=== PATIENT | female | born 1995 ===

== ENCOUNTER 2017-01-06 16:12 | Emergency (ER) | payer MEDICAID ==
[2017-01-06 16:32] VITALS: BMI 36.5
[2017-01-06 16:34] VITALS: BP 118/81; PULSE 89; RESP 18; TEMP 99; O2SAT 100
--- NOTE | 2017-01-06 17:15 | C.PDOC ---
History Of Present Illness 21 year old female who presents to the ER for an evaluation of diffuse lower back pain that began 1 week ago. Patient reports the pain is constant, localized , and worse with movement. Otherwise, pt Denies known trauma or injury, fever, chills, sore throat, abdominal pain, N/V, UTI symptoms, saddle anesthesia, or incontinence, denies weakness, sensory or vascular deficits to B/L lEs. Ambulate to ED for evaluation, not n any apparent distress. Time Seen by Provider: 01/06/17 16:53 Chief Complaint (Nursing): Back Pain History Per: Patient History/Exam Limitations: no limitations Onset/Duration Of Symptoms: Days Current Symptoms Are (Timing): Still Present Quality Of Discomfort: Unable To Describe Previous Symptoms: None Associated Symptoms: None Recent travel outside of the [place]: No Past Medical History Reviewed: Historical Data, Nursing Documentation, Vital Signs Vital Signs: Last Vital Signs Temp 99.0 F 01/06/17 16:32 Pulse 89 01/06/17 16:32 Resp 18 01/06/17 16:32 BP 118/81 01/06/17 16:32 Pulse Ox 100 01/06/17 17:28 - Medical History PMH: No Chronic Diseases Surgical History: No Surg Hx - [facility] Procedures MANUAL ASSIST DELIV NEC (07/23/14) VACCINATION NEC (07/23/14) Family History: States: Unknown Family Hx - Social History Hx Tobacco Use: No Hx Alcohol Use: No Hx Substance Use: No - Immunization History Hx Tetanus Toxoid Vaccination: No Hx Influenza Vaccination: No Hx Pneumococcal Vaccination: No Review Of Systems Constitutional: Negative for: Fever, Chills Gastrointestinal: Negative for: Abdominal Pain Genitourinary: Negative for: Dysuria, Hematuria Musculoskeletal: Positive for: Back Pain Neurological: Negative for: Weakness, Numbness Physical Exam - Physical Exam Appears: Well, Non-toxic, No Acute Distress Skin: Normal Color, Warm, Dry, No Rash Nose: No Flaring, No Discharge Oral Mucosa: Moist Throat: No Erythema, No Exudate, No Drooling Neck: Supple Cardiovascular: Rhythm Regular Respiratory: No Stridor, No Wheezing Gastrointestinal/Abdominal: Soft, No Tenderness, No Distention, No Guarding, No Rebound Back: No CVA Tenderness, No Vertebral Tenderness, Paraspinal Tenderness ( Diffuse lumbar) Extremity: No Tenderness, No Pedal Edema, No Deformity Neurological/Psych: Oriented x3, Normal Speech, Normal Cognition, Normal Motor, Normal Sensation, Normal Reflexes Gait: Steady ED Course And Treatment - Laboratory Results Urine POC: Negative O2 Sat by Pulse Oximetry: 100 (Room air) Pulse Ox Interpretation: Normal Progress Note: Urinalysis ordered. On re-evaluation, pt is afebrile, hemodynamicaly stable. Non-toxic . Ambulatory in ED with stable gait. ENT: no acute findings. Neck: Supple. ABd: benign. Neurologicaly intact. UA (+)WBC. Pt has clinical findings c/w lumbar strain r/o UTI. Pt advised. ref. to Fu with PMD in 2-3 days for re-eavl. return to ED if any worsening or new changes. Disposition Counseled Patient/Family Regarding: Studies Performed, Diagnosis, Need For Followup, Rx Given - Disposition Disposition: HOME/ ROUTINE Disposition Time: 17:25 Condition: STABLE Additional Instructions: LIght duty to lower back, avoid heavy lifting, bending, etc. Take medication as prescribed Follow up with PMD in 2-3 days for re-evaluation. Return to ED if any worsening or new changes. Prescriptions: Ibuprofen [Motrin Tab] 600 mg PO Q6 #20 tab Methocarbamol [Robaxin] 500 mg PO TID #14 tab Nitrofurantoin Macrocrystals [Macrobid] 1 cap PO BID #14 cap Instructions: Urinary Tract Infection in Women (ED), Back Pain (ED) Forms: [facility] (South Korean) - Clinical Impression Clinical Impression: Low back strain, Urinary tract infection - Scribe Statement The provider has reviewed the documentation as recorded by the Scribbernarda Latham All medical record entries made by the Scribe were at my direction and personally dictated by me. I have reviewed the chart and agree that the record accurately reflects my personal performance of the history, physical exam, medical decision making, and the department course for this patient. I have also personally directed, reviewed, and agree with the discharge instructions and disposition.
[2017-01-06 17:23] LABS: RBC URINE 1 /hpf (0-3); URINE BILIRUBIN NEGATIVE (NEGATIVE); URINE BLOOD NEGATIVE (NEGATIVE); URINE COLOR Yellow (YELLOW); URINE GLUCOSE (UA) NORMAL (Normal); URINE KETONE NEGATIVE (NEGATIVE); URINE LEUKOCYTE ESTERASE NEG Leu/uL (Negative); URINE PROTEIN NEGATIVE (NEGATIVE); URINE UROBILINOGEN NORMAL mg/dL (0.2-1.0); WBC URINE 6 /hpf (0-5)
== END 2017-01-06 17:36 | disposition home or self-care (01) ==
LOC: C.ER 16:12
DX: S39.012A Strain of muscle, fascia and tendon of lower back, initial encounter (principal); X58.XXXA Exposure to other specified factors, initial encounter; N39.0 Urinary tract infection, site not specified

== ENCOUNTER 2017-02-01 10:19 | Emergency (ER) | payer MEDICAID ==
[2017-02-01 10:23] VITALS: BMI 37.8
[2017-02-01] MEDS ORDERED: Sodium Chloride 0.9% 500 ML IV ONE ×2 (10:44→11:01)
[2017-02-01 11:06] LABS: BASO % 0.2 % (0.0-2.0); EOS % 0.3 % (0.0-4.0); HEMATOCRIT 36.1 % (34.0-47.0); LYMPH # 1.5 K/uL (1.0-4.3); LYMPH % 18.1 % (20.0-40.0); MEAN CELL VOLUME 75.7 fL (81.0-99.0); MEAN CORPUSCULAR HEMOGLOBIN 25.3 pg (27.0-31.0); MEAN CORPUSCULAR HGB CONC 33.5 g/dL (33.0-37.0); MEAN PLATELET VOLUME 6.8 fL (7.2-11.7); MONO # 0.5 K/uL (0.0-0.8); MONO % 5.7 % (0.0-10.0); NRBC % 0.1 % (0.0-2.0); RED CELL DISTRIBUTION WIDTH 14.6 % (11.5-14.5); WHITE BLOOD COUNT 8.5 K/uL (4.8-10.8)
[2017-02-01 11:12] LABS: RBC URINE 3 /hpf (0-3); URINE BACTERIA FEW (<OCC); URINE BILIRUBIN NEGATIVE (NEGATIVE); URINE BLOOD NEGATIVE (NEGATIVE); URINE COLOR Yellow (YELLOW); URINE GLUCOSE (UA) NORMAL (Normal); URINE KETONE NEGATIVE (NEGATIVE); URINE LEUKOCYTE ESTERASE 3+ Leu/uL (Negative); URINE PROTEIN NEGATIVE (NEGATIVE); URINE UROBILINOGEN NORMAL mg/dL (0.2-1.0); WBC URINE 25 /hpf (0-5)
[2017-02-01 11:20] LABS: ALB/GLOB RATIO 1.1 (1.0-2.1); ALKALINE PHOSPHATASE 63 U/L (38-126); ALT/SGPT 27 U/L (9-52); AST/SGOT 22 U/L (14-36); BILIRUBIN,TOTAL 0.3 mg/dL (0.2-1.3); BLOOD UREA NITROGEN 9 mg/dL (7-17); CALCIUM 9.5 mg/dl (8.6-10.4); CARBON DIOXIDE 23 mmol/L (22-30); CHLORIDE 103 mmol/L (98-107); GFR AFRICAN-AMERICAN > 60; GLUCOSE,RANDOM 102 mg/dL (65-105); POTASSIUM 3.9 mmol/L (3.6-5.2); SODIUM 142 mmol/L (132-148); TOTAL PROTEIN 7.3 g/dL (6.3-8.3)
--- NOTE | 2017-02-01 12:29 | C.PDOC ---
History Of Present Illness Patient is a 21 year old female, , 9 weeks , presents to Emergency Department for evaluation of spotting and abdominal cramping since last night. ( +)nausea (+)urinary frequency. Denies vomiting, vaginal discharge, dysuria, hematuria, or fever. Time Seen by Provider: 02/01/17 10:28 Chief Complaint (Nursing): Abdominal Pain History Per: Patient History/Exam Limitations: no limitations Onset/Duration Of Symptoms: Days (1) Current Symptoms Are (Timing): Still Present Location Of Pain/Discomfort: Suprapubic Radiation Of Pain To:: None Quality Of Discomfort: Cramping Associated Symptoms: Nausea, Urinary Symptoms (urinary frequency). denies: Fever, Chills, Vomiting, Diarrhea, Loss Of Appetite, Back Pain, Chest Pain, Constipation Exacerbating Factors: None Alleviating Factors: None Recent travel outside of the [place]: No Additional History Per: Patient : 3 Para: 2 Past Medical History Reviewed: Historical Data, Nursing Documentation, Vital Signs Vital Signs: Last Vital Signs Temp 98.5 F 02/01/17 14:35 Pulse 79 02/01/17 14:35 Resp 20 02/01/17 14:35 BP 103/69 02/01/17 14:35 Pulse Ox 99 02/01/17 15:35 - [facility] Procedures MANUAL ASSIST DELIV NEC (07/23/14) VACCINATION NEC (07/23/14) Family History: States: Unknown Family Hx - Social History Hx Tobacco Use: No Hx Alcohol Use: No Hx Substance Use: No - Immunization History Hx Tetanus Toxoid Vaccination: No Hx Influenza Vaccination: No Hx Pneumococcal Vaccination: No Review Of Systems Except As Marked, All Systems Reviewed And Found Negative. Constitutional: Negative for: Fever, Chills Gastrointestinal: Positive for: Nausea, Abdominal Pain. Negative for: Vomiting , Diarrhea Genitourinary: Positive for: Frequency, Vaginal Bleeding (spotting). Negative for: Dysuria, Hematuria, Vaginal Discharge Musculoskeletal: Negative for: Back Pain Physical Exam - Physical Exam Appears: Non-toxic, No Acute Distress Skin: Normal Color, Warm, Dry Head: Atraumatic, Normacephalic Eye(s): bilateral: Normal Inspection Oral Mucosa: Moist Neck: Normal ROM Chest: Symmetrical Cardiovascular: Rhythm Regular, No Murmur Respiratory: Normal Breath Sounds, No Rales, No Rhonchi, No Wheezing Gastrointestinal/Abdominal: Soft, Tenderness (suprapubic), No Guarding, No Rebound Back: Normal Inspection, No CVA Tenderness Extremity: Normal ROM Neurological/Psych: Oriented x3, Normal Speech ED Course And Treatment - Laboratory Results Result Diagrams: 02/01/17 11:02 02/01/17 11:02 O2 Sat by Pulse Oximetry: 99 (on RA) Pulse Ox Interpretation: Normal Progress Note: Blood work, UA, ultrasound ordered and reviewed. Pt was given Macrobid, and IV fluids. On reassessment, patient is resting comfortably, no acute distress. Abdomen remains soft. Patient notes that she has received Rhogam in the past. Case discussed with Dr. Chapa who instructed to give Rhogam to patient. Patient is being discharged home and is instructed to follow up with PMD or clinic. Disposition - Disposition Disposition: HOME/ ROUTINE Disposition Time: 14:24 Condition: STABLE Additional Instructions: Follow up with your primary medical doctor or clinic in 2-5 days for further evaluation. Return to the emergency department at any time if symptoms persist or worsen. Prescriptions: Nitrofurantoin Macrocrystals [Macrobid] 1 cap PO BID #14 cap Multivit/Folic Acid/I [ Plus] 1 tab PO DAILY #30 tab Instructions: (ED) Forms: [facility] (French), Work Excuse - Clinical Impression Clinical Impression: UTI in , Subchorionic hemorrhage, Need for rhogam due to Rh negative mother - PA / DIGITAL ADVERTISING ANALYST / Resident Statement MD/DO has reviewed & agrees with the documentation as recorded. - Scribe Statement The provider has reviewed the documentation as recorded by the Kalebibbernarda Lane All medical record entries made by the Scribe were at my direction and personally dictated by me. I have reviewed the chart and agree that the record accurately reflects my personal performance of the history, physical exam, medical decision making, and the department course for this patient. I have also personally directed, reviewed, and agree with the discharge instructions and disposition.
--- NOTE | 2017-02-01 13:37 | US ---
PROCEDURE: OB Pelvic Ultrasound HISTORY: bleeding COMPARISON: None available. FINDINGS: UTERUS: Single Live intrauterine gestation. CRL equivalent to 6 weeks 3 days gestatioin Gestational sac diameter equivalent to 6 weeks 1 day gestation age (Ultrasound estimated): 6 weeks 2 days Date of delivery (Ultrasound estimated) : 09/25/2017 Heart rate: 135 bpm. 2 mm yolk sac identified. Merline-gestational hemorrhage: Small Uterus measures 11.0 x 5.0 x 4.6 cm. No mass CERVIX: Long and closed. No cervical abnormality seen. RIGHT OVARY: Measures 3.2 x 2.5 x 3.5 cm. No mass. Normal flow. LEFT OVARY: Measures 2.2 x 1.4 x 2.3 cm. No mass. Normal flow. FREE FLUID: None. OTHER FINDINGS: None. IMPRESSION: Single live intrauterine gestation of approximately 6 weeks 2 days gestational age. Small subchorionic hemorrhage noted. heart rate 135 beats per minute. Unremarkable ovaries.
[2017-02-01 14:36] VITALS: BP 103/69; PULSE 79; RESP 20; TEMP 98.5
[2017-02-01 15:15] VITALS: O2SAT 99
== END 2017-02-01 15:05 | disposition home or self-care (01) ==
LOC: C.ER 10:19
DX: O23.41 Unspecified infection of urinary tract in pregnancy, first trimester (principal); O46.8X1 Other antepartum hemorrhage, first trimester; Z3A.09 9 weeks gestation of pregnancy; Z29.13 Encounter for prophylactic Rho(D) immune globulin
CPT/HCPCS: 76801; 80053; 81001; 84702; 84703; 85025; 86850; 86900; 87086; 96360; 99285; J2792; J7040

== ENCOUNTER 2017-09-05 14:46 | Inpatient (IN) | payer MEDICAID, OTHER ==
[2017-09-05 16:26] VITALS: BMI 42.5
[2017-09-05 17:02] LABS: BASO % 0.1 % (0.0-2.0); EOS % 0.1 % (0.0-4.0); HEMOGLOBIN 10.5 g/dL (11.0-16.0); LYMPH # 1.6 K/uL (1.0-4.3); LYMPH % 13.5 % (20.0-40.0); MEAN CORPUSCULAR HEMOGLOBIN 24.7 pg (27.0-31.0); MEAN CORPUSCULAR HGB CONC 33.7 g/dL (33.0-37.0); MEAN PLATELET VOLUME 6.6 fL (7.2-11.7); MONO # 0.7 K/uL (0.0-0.8); NEUT # 9.7 K/uL (1.8-7.0); NEUT % 80.3 % (50.0-75.0); RBC 4.25 Mil/uL (3.80-5.20); RED CELL DISTRIBUTION WIDTH 16.6 % (11.5-14.5)
[2017-09-05 17:04] LABS: MEAN CELL VOLUME 73.4 fL (81.0-99.0)
[2017-09-05] MEDS: Lactated Ringer's 1,000 ML IV SCH (17:10)
[2017-09-05 17:14] LABS: SQUAMOUS EPITHIAL 9 /hpf (0-5); URINE BACTERIA OCC (<OCC); URINE BILIRUBIN NEGATIVE (NEGATIVE); URINE BLOOD NEGATIVE (NEGATIVE); URINE CLARITY Hazy (Clear); URINE COLOR Yellow (YELLOW); URINE GLUCOSE (UA) NORMAL (Normal); URINE LEUKOCYTE ESTERASE TRACE Leu/uL (Negative); URINE PROTEIN 1+ mg/dL (NEGATIVE)
[2017-09-05 17:16] LABS: ALBUMIN 3.5 g/dL (3.5-5.0); BLOOD UREA NITROGEN 6 mg/dL (7-17); CALCIUM 8.9 mg/dl (8.6-10.4); GFR AFRICAN-AMERICAN > 60; GFR NON-AFRICAN AMERICAN > 60
[2017-09-05 17:17] LABS: ALT/SGPT 20 U/L (9-52); AST/SGOT 26 U/L (14-36)
--- NOTE | 2017-09-05 22:59 | OBHP ---
Datetime: 09/05/2017 21:11 IP Adm Impression: Term, intrauterine ; No Active Labor; Intact Membranes IP Chief Complaint Other: poorly controlled A2 GDM IP Adm Impression Other: IOL IP Admit Plan: Admit to unit; Initiate labor induction protocol Admit Comment, IP Provider: Patient initially seenand evaluated at approximately 1600 hours: receive d in LDR#2 22 y.o. , LMP unsure, REBEKA 09/19/17, EGA 38 weeks by sono 02/26/17 at 10w 5d, referred for IOL b y MFM, Dr. Cazares, secondary to "poorly controlled gestational diabetes mellitus on glyburide". (+) AFM; denies LOF, VB, Ctx. care: [facility]-, noted for 1) h/o pyloric stenosis in previous 2 c hildren: S/P genetics counseling, declined amnio. 2) echogenic focus in left ventricle: S/P ECH O - grossly normal. 3) morbid obesity. P Ob: x 2: both males, 2011, 5lb 15oz at 37 weeks. 2014, 6lb 4oz at 40 weeks; both delivered [facility], Both with pyloric stenosis. Both had corrective surgery at approx 2 months. Both alvie and well P ORDAINED MINISTER: 12 x 28 x 7. Denies H/O STI PMH: A2 GDM, index PSH: 2006, removal of cysts on dorsal aspect of forearms, bilaterally. NKDA Food allergies: 1) strawberres = rash. 2) Shrimp = anaphylaxis Meds: PNV - QD. Glyburide 1.25 mg p.o. BID Soc Hx: denies tobacco, illicit drug or EtOH use. Lives with FOB and 2 sons (FOB same for 2nd son and index ). Unemployed Fam Hx: Mother alive - DM. Father alive no med issues. Mat aunt - breast CA survivor. P.E.: as above. Obese in NAD. Awake, alert, oriented to time, person and place. Pleasant and coop erative. Assessment: 22 y.o. P2002, 38 wk, A2 GDM, poorly controlled for IOL. F.S. log reviewed: noted for several abnormal values: fasting > 90 mg/dL; 2 hour post prandial > 120 mg/dL. D/W patient cervical ripening. Patient expressed an understanding and agrees. Category 1 tracing. Clinically stable. Plan: 1) Admit 2) NPO 3) IVFs 4) Continuous EFM 5) Admission labs 6) Cervidil 7) Anticipate vaginal delivery Addendum: 1720 hours - cervidil placed in posterior vaginal vault without incident Pelvic Type - PN: Adequate Extremities - PN: Normal Abdomen - PN: Normal Back - PN: Normal Breast - PN: Normal Lungs - PN: Normal Heart - PN: Normal Thyroid - PN: Not Done Neurologic - PN: Normal HEENT - PN: Normal General - PN: Normal Weight - Estimated: 3287 Presentation-Admit: Vertex FHR - Baseline A Provider: 130 Contraction Comments Provider: none Comments, ACOG Physical Exam: Abdomen: morbidly obese. Gravid Soft, non tender. All other systems reviewed and are negative Gestation - Est Wks by US: 38.0 IP Hx Assessment: The History has been Reviewed and is Current EGA AdmitDate IP: 38.0 Vital Signs Provider: Reviewed; Within Normal Limits IP Chief Complaint: Other NICHD Variability Prov Fetus A: Moderate 6-25bpm NICHD Accel Fetus A IP Provider: 15X15 FHR Category Provider Fetus A: Category I NICHD Decel Fetus A IP Provider: None Dilatation, Provider: 2 Effacement, Provider: 30 Station, Provider: -3 Genitourinary Exam: Normal DTRs - PN: Not Done
--- NOTE | 2017-09-05 23:06 | OBADHP ---
Datetime: 09/05/2017 21:11 IP Chief Complaint Other: poorly controlled A2 GDM IP Adm Impression Other: IOL Admit Comment, IP Provider: Patient initially seenand evaluated at approximately 1600 hours: receive d in LDR#2 22 y.o. , LMP unsure, REBEKA 09/19/17, EGA 38 weeks by sono 02/26/17 at 10w 5d, referred for IOL b y MFM, Dr. Cazares, secondary to "poorly controlled gestational diabetes mellitus on glyburide". (+) AFM; denies LOF, VB, Ctx. care: [facility]-, noted for 1) h/o pyloric stenosis in previous 2 c hildren: S/P genetics counseling, declined amnio. 2) echogenic focus in left ventricle: S/P ECH O - grossly normal. 3) morbid obesity. P Ob: x 2: both males, 2011, 5lb 15oz at 37 weeks. 2014, 6lb 4oz at 40 weeks; both delivered [facility], Both with pyloric stenosis. Both had corrective surgery at approx 2 months. Both alvie and well P FURNACE PACKER: 12 x 28 x 7. Denies H/O STI PMH: A2 GDM, index PSH: 2006, removal of cysts on dorsal aspect of forearms, bilaterally. NKDA Food allergies: 1) strawberres = rash. 2) Shrimp = anaphylaxis Meds: PNV - QD. Glyburide 1.25 mg p.o. BID Soc Hx: denies tobacco, illicit drug or EtOH use. Lives with FOB and 2 sons (FOB same for 2nd son and index ). Unemployed Fam Hx: Mother alive - DM. Father alive no med issues. Mat aunt - breast CA survivor. P.E.: as above. Obese in NAD. Awake, alert, oriented to time, person and place. Pleasant and coop erative. Assessment: 22 y.o. P2002, 38 wk, A2 GDM, poorly controlled for IOL. F.S. log reviewed: noted for several abnormal values: fasting > 90 mg/dL; 2 hour post prandial > 120 mg/dL. D/W patient cervical ripening. Patient expressed an understanding and agrees. Category 1 tracing. Rh negative - S/P Rhogam at 28 weeks. Clinically stable. Plan: 1) Admit 2) NPO 3) IVFs 4) Continuous EFM 5) Admission labs 6) Cervidil 7) Anticipate vaginal delivery Addendum: 1720 hours - cervidil placed in posterior vaginal vault without incident Pelvic Type - PN: Adequate Extremities - PN: Normal Abdomen - PN: Normal Back - PN: Normal Breast - PN: Normal Lungs - PN: Normal Heart - PN: Normal Thyroid - PN: Not Done Neurologic - PN: Normal HEENT - PN: Normal General - PN: Normal Weight - Estimated: 3287 Presentation-Admit: Vertex FHR - Baseline A Provider: 130 Contraction Comments Provider: none Comments, ACOG Physical Exam: Abdomen: morbidly obese. Gravid Soft, non tender. All other systems reviewed and are negative Gestation - Est Wks by US: 38.0 IP Hx Assessment: The History has been Reviewed and is Current Vital Signs Provider: Reviewed; Within Normal Limits IP Chief Complaint: Other NICHD Variability Prov Fetus A: Moderate 6-25bpm NICHD Accel Fetus A IP Provider: 15X15 FHR Category Provider Fetus A: Category I NICHD Decel Fetus A IP Provider: None Dilatation, Provider: 2 Effacement, Provider: 30 Station, Provider: -3 Genitourinary Exam: Normal DTRs - PN: Not Done EGA AdmitDate IP: 38.0 IP Adm Impression: Term, intrauterine ; No Active Labor; Intact Membranes IP Admit Plan: Admit to unit; Initiate labor induction protocol
[2017-09-05] MEDS ORDERED: Dextrose 5%/Lactated Ringer's 1,000 ML IV SCH (23:15)
[2017-09-06] MEDS ORDERED: Bupivacaine HCl/FentaNYL Cit 100 ML EPI ONE ×2 (00:39→07:10)
[2017-09-06] MEDS: Lactated Ringer's 1,000 ML IV SCH (07:53)
[2017-09-06] MEDS ORDERED: Lidocaine 2% Inj (20ml) ONE (09:27)
[2017-09-06] MEDS ORDERED: Oxytocin 30 UNIT 30 UNITS/500 ML BAG IV ONE (10:47)
[2017-09-06] MEDS ORDERED: Oxytocin 30 UNIT 30 UNITS/500 ML BAG IV PRN (10:48)
[2017-09-06 20:57] VITALS: O2SAT 98
[2017-09-07 08:03] LABS: BASO % 0.2 % (0.0-2.0); EOS % 0.4 % (0.0-4.0); HEMOGLOBIN 10.6 g/dL (11.0-16.0); LYMPH # 2.1 K/uL (1.0-4.3); LYMPH % 17.6 % (20.0-40.0); MEAN CELL VOLUME 74.3 fL (81.0-99.0); MEAN CORPUSCULAR HGB CONC 33.7 g/dL (33.0-37.0); MEAN PLATELET VOLUME 6.6 fL (7.2-11.7); MONO # 0.8 K/uL (0.0-0.8); MONO % 6.9 % (0.0-10.0); NEUT # 8.8 K/uL (1.8-7.0); NEUT % 74.9 % (50.0-75.0); RBC 4.22 Mil/uL (3.80-5.20); RED CELL DISTRIBUTION WIDTH 16.3 % (11.5-14.5); WHITE BLOOD COUNT 11.8 K/uL (4.8-10.8)
--- NOTE | 2017-09-07 09:06 | OBPPN ---
Datetime: 09/07/2017 08:54 PP Pain Prov: Within normal limits PP Nausea Prov: Denies PP Flatus Prov: Yes PP BM Prov: No PP Heart Prov: Normal PP Lungs Prov: Normal PP Abdomen/Uterus Prov: Normal PP Lochia Prov: Normal PP Vulva/Perineum Prov: Normal PP CVA Tenderness Prov: Normal PP Extremities Prov: Normal PP C/S Incision Prov: Not Applicable PP Progress Prov: Normal PP Comments Phys Exam Prov: Breasts: no cracked nipples Abdomen: Obese. (+) BS. Soft, non distended. Fundus firm, mobile, non tender, 1 FB below umbilicus . Moderate lochia rubra Extremities: no calf tenderness, cyanosis or edema All other systems reviewed and are negative PP Impression Prov: Normal progression PP Plan Prov: Continue present management PP Progress Note Prov: Patient received in room 452, ambulating, in very good spirits. Breastfeedin g exclusively. Denies headaches, chest pain, lightheadedness or dizziness. P.E.: as above. Obese, in NAD. Awake, alert, oriented to time, person and place. Pleasant and lead clinical research coordinator perative. Mother present - PPD#1 H/H 10.6/31.4. Rh (-) Assessment: PPD#1, 22 y.o. P3, S/P at 38 weeks, poorly controlled A2GDM. Rh (-); infant Rh (- ) - Rhogam not indicated. Afebrile, vital signs stable. Chronic anemia stable. - asymptomatic and he modynamically stable. Plan: 1) Continue present management 2) Anticpate discharge home 09/08/16 Vital Signs Provider PP: Reviewed; Within Normal Limits
[2017-09-08 08:05] VITALS: BP 113/76; PULSE 78; RESP 18; TEMP 98.3
--- NOTE | 2017-09-08 08:14 | OBPPN ---
Datetime: 09/08/2017 08:11 PP Pain Prov: Within normal limits PP Nausea Prov: Denies PP Flatus Prov: Yes PP BM Prov: No PP Breasts Prov: Normal PP Heart Prov: Normal PP Lungs Prov: Normal PP Abdomen/Uterus Prov: Normal PP Lochia Prov: Normal PP Vulva/Perineum Prov: Normal PP CVA Tenderness Prov: Normal PP Extremities Prov: Normal PP C/S Incision Prov: Not Applicable PP Progress Prov: Normal PP Impression Prov: Normal progression PP Plan Prov: Continue present management; Discharge PP Progress Note Prov: Pt seen and examined and erprot pain well controlled. pt ambuaitn out of bed, voising, psasing flatus, breast feeding, deis any fever, chills, nasu, vomitng, cp, sob VSS PE GEN NAD AA x 3 BREAST: Nt, non genorge b/l RESP: CTAB?l CVS: RRR, +S1/S2 ABD: osft, Nt/ND, no ugaridng no reboudn tendnerre nor igdty FUNDUS: Fimr, below lelv eo fumbiucs VE: Minimal lochia, non foul smelling EXT: No calf tendenrss b/l A/P s/p PPD #2 doign well, stable fo rdc, GDMA -dc home -f/u clinic 6 week ira lneed repeat diabetse testing postpariutm 4-12 weeks Vital Signs Provider PP: Reviewed; Within Normal Limits
--- NOTE | 2017-09-08 08:14 | OBDCSUM ---
Datetime: 09/08/2017 07:57 Discharged to, Provider: Home Follow up at, Provider: [facility] Disch Instr Activity: May Shower Disch Instr Diet: Regular Discharge Diet restrict Prov: none Discharge Instructions, Provider: Routine instructions given Discharge Diagnosis, Provider: Term Delivered Discharge Time: 09/08/2017 10:00 Follow up in weeks, Provider: 6 weeks Disch Referrals: None Contraception discussed, Prov: Yes Disch Activity Restrictions: No sexual activity; Nothing in vagina - Lubeck, tampons, douche Discharge Comment, Provider: f/u outpatient for repat diabets testing Contraception after Delivery: Not Planning to Use
--- NOTE | 2017-09-09 09:42 | OBPN ---
Datetime: 09/05/2017 21:11 IP Progress Plan Other: start oxytocin IP Progress Note Comment: contractions are not adequate starty oxytocin 1mu.
--- NOTE | 2017-09-09 09:42 | OBPN ---
Datetime: 09/05/2017 21:11 IP Procedures Other: Fluid clear IP Progress Impression: Normal progression of labor IP Informed Consent Obtain: Risks, Benefits and Alternatives Discussed IP Procedures: Artificial ROM IP Progress Plan: Induction; Anticipate Vaginal Delivery Membranes, Provider: Ruptured Amniotic Fluid Color, Provider: Clear Contraction Comments Provider: none FHR - Baseline A Provider: 140s Gestation - Est Wks by US: 38.0 Weight - Estimated: 3287 Presentation-Admit: Vertex IP Progress Note Comment: PT was checked and was AROM with clear fluid. We are unable to read tracin g d/t pts BMI. IUPC and ISL inserted. pt contractin q2 minutes. Category 1 Vital Signs Provider: Reviewed; Within Normal Limits NICHD Accel Fetus A IP Provider: 15X15 FHR Category Provider Fetus A: Category I NICHD Variability Prov Fetus A: Moderate 6-25bpm Dilatation, Provider: 7 Effacement, Provider: 100 Station, Provider: -2 NICHD Decel Fetus A IP Provider: None Signature: nile hyman
== END 2017-09-08 10:15 | disposition home or self-care (01) | DRG 372 ==
LOC: C.EROB 14:46 → C.4D 16:27 → C.4M 09-06 14:50
PROVIDERS: ADMIT Obstetrics & Gynecology; ATTEND Obstetrics & Gynecology
PROC: 10E0XZZ Delivery of Products of Conception, External Approach (ICD-10-PCS; principal; 2017-09-05)
DX: O24.419 Gestational diabetes mellitus in pregnancy, unspecified control (principal); O99.02 Anemia complicating childbirth; O99.214 Obesity complicating childbirth; E66.01 Morbid (severe) obesity due to excess calories; Z68.41 Body mass index [BMI] 40.0-44.9, adult; Z3A.38 38 weeks gestation of pregnancy; Z37.0 Single live birth